=== PATIENT | male | born 1970 | race Two or more races ===

== ENCOUNTER → 2021-02-09 | Outpatient (CLI) | payer MEDICARE, MEDICAID ==
[2021-02-09 10:08] LABS: Basophils # (auto) 0 10 ^3/uL (0-0.2); Basophils % (auto) 0.7 % (0.0-2.0); Eosinophils # (auto) 0 10 ^3/uL (0-0.8); Eosinophils % (auto) 0.7 % (0.0-7.0); Hematocrit 32.9 % (41.0-53.0); Lymphocytes % (auto) 21.8 % (10.0-50.0); Mean Corpuscular Hemoglobin 28.6 pg (28.0-32.0); Mean Corpuscular Hgb Conc. 33.4 g/dL (32.0-36.0); Mean Corpuscular Volume 85.4 fL (80.0-100.0); Monocytes # (auto) 0.7 10 ^3/uL (0-1.3); Monocytes % (auto) 15.1 % (0.0-12.0); Neutrophils # (auto) 2.7 10 ^3/uL (1.6-8.6); Neutrophils % (auto) 61.7 % (37.0-80.0); Red Blood Cells 3.85 10^6/uL (4.5-5.90); Red Cell Distribution Width 16.9 % (11.8-14.3); White Blood Cell 4.4 10^3/uL (4.4-10.8)
[2021-02-09 10:12] LABS: Urine Bacteria NONE SEEN /hpf (None Seen); Urine Blood Negative /uL (Negative); Urine Specific Gravity 1.022 (1.001-1.035); Urine WBC <1 /hpf (0 - 3)
[2021-02-09 10:36] LABS: Potassium 4.4 mmol/L (3.5-5.1)
[2021-02-09 10:55] LABS: Albumin 3.1 g/dL (3.4-5.0); BUN/Creatinine Ratio 32.9; Bilirubin, Total 0.3 mg/dL (0.2-1.0); Calcium 8.8 mg/dL (8.5-10.1); Total Protein 9.4 g/dL (6.4-8.2)
== END | disposition home or self-care (01) ==
LOC: LAB 09:48
PROVIDERS: ATTEND Internal Medicine
DX: I10 Essential (primary) hypertension (principal); J44.9 Chronic obstructive pulmonary disease, unspecified; D64.9 Anemia, unspecified; R56.9 Unspecified convulsions; R73.9 Hyperglycemia, unspecified
CPT/HCPCS: 36415; 80053; 80061; 81001; 83036; 85025

== ENCOUNTER → 2021-02-23 | Outpatient (CLI) | payer MEDICARE, MEDICAID ==
[2021-02-23 09:34] LABS: Basophils # (auto) 0.1 10 ^3/uL (0-0.2); Basophils % (auto) 1.6 % (0.0-2.0); Eosinophils # (auto) 0 10 ^3/uL (0-0.8); Eosinophils % (auto) 1.1 % (0.0-7.0); Hematocrit 32.8 % (41.0-53.0); Lymphocytes # (auto) 1.3 10 ^3/uL (0.4-5.4); Lymphocytes % (auto) 30.1 % (10.0-50.0); Mean Corpuscular Hemoglobin 28.4 pg (28.0-32.0); Mean Corpuscular Hgb Conc. 33.4 g/dL (32.0-36.0); Mean Corpuscular Volume 85.1 fL (80.0-100.0); Monocytes # (auto) 0.5 10 ^3/uL (0-1.3); Monocytes % (auto) 10.9 % (0.0-12.0); Neutrophils # (auto) 2.4 10 ^3/uL (1.6-8.6); Neutrophils % (auto) 56.3 % (37.0-80.0); Nucleated Red Blood Cells % 0.1 %; Platelet Count (auto) 176 10^3/uL (140-450); Red Blood Cells 3.85 10^6/uL (4.5-5.90); Red Cell Distribution Width 16.9 % (11.8-14.3); White Blood Cell 4.2 10^3/uL (4.4-10.8)
[2021-02-23 09:55] LABS: Potassium 4.1 mmol/L (3.5-5.1)
[2021-02-23 10:15] LABS: Albumin 3.4 g/dL (3.4-5.0); BUN/Creatinine Ratio 32.1; Bilirubin, Total 0.2 mg/dL (0.2-1.0); Calcium 9.2 mg/dL (8.5-10.1); Total Protein 9.8 g/dL (6.4-8.2)
== END | disposition home or self-care (01) ==
LOC: LAB 09:06
PROVIDERS: ATTEND Internal Medicine
DX: I10 Essential (primary) hypertension (principal); D64.9 Anemia, unspecified
CPT/HCPCS: 36415; 80053; 85025; 85049

== ENCOUNTER 2021-07-23 20:14 | Inpatient (IN) | payer MEDICARE, MEDICAID ==
[~2021-07-23] VITALS: Ht 180.3 cm; Wt 79.7 kg
[2021-07-23] MEDS ORDERED: ACETAMINOPHEN 500 MG TAB PO ONE (22:30)
[2021-07-23 23:12] LABS: Basophils # (auto) 0 10 ^3/uL (0-0.2); Basophils % (auto) 0.2 % (0.0-2.0); Eosinophils # (auto) 0 10 ^3/uL (0-0.8); Hematocrit 26.8 % (41.0-53.0); Hemoglobin 8.9 g/dL (13.5-17.5); Lymphocytes # (auto) 0.9 10 ^3/uL (0.4-5.4); Mean Corpuscular Hemoglobin 28.8 pg (28.0-32.0); Mean Corpuscular Hgb Conc. 33.1 g/dL (32.0-36.0); Mean Corpuscular Volume 87.1 fL (80.0-100.0); Monocytes # (auto) 0.3 10 ^3/uL (0-1.3); Monocytes % (auto) 6.5 % (0.0-12.0); Neutrophils # (auto) 3.6 10 ^3/uL (1.6-8.6); Neutrophils % (auto) 74.3 % (37.0-80.0); Nucleated Red Blood Cells % 0.1 %; Red Blood Cells 3.08 10^6/uL (4.5-5.90); Red Cell Distribution Width 16.6 % (11.8-14.3); White Blood Cell 4.9 10^3/uL (4.4-10.8)
[2021-07-23 23:28] LABS: INR 0.99 (0.9-1.15)
[2021-07-23 23:29] LABS: Calcium 7.3 mg/dL (8.5-10.1); Magnesium 3.2 mg/dL (1.6-2.6); Potassium 4.1 mmol/L (3.5-5.1)
[2021-07-23 23:35] LABS: BUN/Creatinine Ratio 39.8; Bilirubin, Total 0.3 mg/dL (0.2-1.0); Total Protein 8.5 g/dL (6.4-8.2)
[2021-07-24] MEDS ORDERED: ASPirin 325 MG TAB PO ONE
[2021-07-24] MEDS ORDERED: SODIUM CHLORIDE 0.9% 1,000 ML IV ONE
[2021-07-24] MEDS ORDERED: TEMAZEPAM 15 MG CAP PO PRN (00:45)
[2021-07-24] MEDS ORDERED: ONDANSETRON HCL 4 MG/2 ML VIAL IV PRN (00:45)
[2021-07-24] MEDS ORDERED: ALBUMIN 25% 100 ML IV ONE (00:45)
[2021-07-24] MEDS ORDERED: HYDROcodone-ACET 5/325MG TAB PO PRN (00:45)
[2021-07-24] MEDS ORDERED: SODIUM CHLORIDE 0.9% 1,000 ML IV SCH (00:45)
[2021-07-24] MEDS ORDERED: DOCUSATE SOD 100 MG CAP PO PRN (00:45)
[2021-07-24] MEDS ORDERED: ACETAMINOPHEN 500 MG TAB PO PRN (00:45)
[2021-07-24] MEDS ORDERED: MORPHINE SULFATE INJECTION 2 MG/ML SYRG IV PRN (02:15)
[2021-07-24] MEDS ORDERED: NITROGLYCERIN 0.4 MG SL TAB SL PRN (02:15)
[2021-07-24 04:41] VITALS: BP 98/52
[2021-07-24 07:25] LABS: Magnesium 2.6 mg/dL (1.6-2.6)
[2021-07-24 09:25] LABS: Basophils # (auto) 0 10 ^3/uL (0-0.2); Basophils % (auto) 0.6 % (0.0-2.0); Eosinophils # (auto) 0 10 ^3/uL (0-0.8); Eosinophils % (auto) 0.1 % (0.0-7.0); Hematocrit 32.3 % (41.0-53.0); Hemoglobin 10.4 g/dL (13.5-17.5); Lymphocytes # (auto) 0.8 10 ^3/uL (0.4-5.4); Lymphocytes % (auto) 22.5 % (10.0-50.0); Mean Corpuscular Hemoglobin 28.7 pg (28.0-32.0); Mean Corpuscular Hgb Conc. 32.2 g/dL (32.0-36.0); Mean Corpuscular Volume 89.1 fL (80.0-100.0); Monocytes # (auto) 0.2 10 ^3/uL (0-1.3); Monocytes % (auto) 5.7 % (0.0-12.0); Neutrophils # (auto) 2.7 10 ^3/uL (1.6-8.6); Neutrophils % (auto) 71.1 % (37.0-80.0); Nucleated Red Blood Cells % 0.2 %; Red Blood Cells 3.62 10^6/uL (4.5-5.90); Red Cell Distribution Width 16.8 % (11.8-14.3); White Blood Cell 3.8 10^3/uL (4.4-10.8)
[2021-07-24 09:29] LABS: Albumin 2.5 g/dL (3.4-5.0); Calcium 7.1 mg/dL (8.5-10.1)
[2021-07-24 09:32] LABS: BUN/Creatinine Ratio 39.9; Bilirubin, Total 0.3 mg/dL (0.2-1.0); Total Protein 8.4 g/dL (6.4-8.2)
[2021-07-24] MEDS: ALBUTEROL SULF HFA 90MCG INH 200DOSE IN PRN ×2 (10:36→21:23)
[2021-07-24] MEDS: BUDESONIDE (INHALATION) 180 MCG IH IN SCH ×2 (10:36→21:23)
[2021-07-24] MEDS: cefTRIAXone 1GM/50ML D5W 50 ML IV SCH (11:20)
[2021-07-24] MEDS: ASPirin 81 mg TAB PO SCH (11:21)
[2021-07-24] MEDS: ZINC SULFATE 220mg CAP or TAB PO SCH (11:21)
[2021-07-24] MEDS: DexAMETHasone SOD PHOS 10MG/1ML VIAL INJ IV SCH (11:21)
[2021-07-24] MEDS: ASCORBIC ACID 1,000 MG TAB PO SCH (11:21)
[2021-07-24] MEDS: FAMOTIDINE (10MG/ML) 2ML VL IV SCH ×2 (11:21→22:23)
[2021-07-24] MEDS: MULTIPLE VITAMIN TAB PO SCH (11:21)
[2021-07-24] MEDS: CHOLECALCIFEROL (VITD3) 2,000 UNIT CAP/TAB PO SCH (11:22)
[2021-07-24] MEDS: HEPARIN SODIUM (PORCINE) 5000 UNITS/ML 1ML VIAL SC SCH ×2 (11:22→22:24)
[2021-07-24] MEDS: AZITHROMYCIN 500MG/ 250ML 250 ML IV SCH (12:21)
[2021-07-24] MEDS ORDERED: BUMETANIDE 2.5mg/10ml (0.25 mg/ml) INJ IV ONE (13:30)
[2021-07-24] MEDS: SODIUM CHLORIDE 0.9% 1,000 ML IV SCH ×2 (16:32→23:12)
[2021-07-24 16:38] VITALS: BP 123/73
[2021-07-24 16:43] VITALS: BP 124/77
[2021-07-24 22:00] VITALS: BP 117/78
[2021-07-24] MEDS: SODIUM BICARBONATE 650 MG TAB PO SCH (22:22)
[2021-07-24 23:23] LABS: Urine Bacteria FEW /hpf (None Seen); Urine Blood 2+ /uL (Negative); Urine Mucus FEW (None Seen); Urine Specific Gravity 1.018 (1.001-1.035); Urine WBC 5 /hpf (0 - 3)
[2021-07-25 05:00] VITALS: BP 132/83
[2021-07-25] MEDS: SODIUM CHLORIDE 0.9% 1,000 ML IV SCH ×3 (05:29→22:08)
[2021-07-25] MEDS: BUDESONIDE (INHALATION) 180 MCG IH IN SCH ×2 (06:11→23:00)
[2021-07-25] MEDS: ALBUTEROL SULF HFA 90MCG INH 200DOSE IN PRN ×2 (06:11→23:00)
[2021-07-25 07:35] LABS: Albumin 2.2 g/dL (3.4-5.0); Calcium 6.8 mg/dL (8.5-10.1); Potassium 4.7 mmol/L (3.5-5.1)
[2021-07-25 07:38] LABS: BUN/Creatinine Ratio 46.8; Bilirubin, Total 0.4 mg/dL (0.2-1.0); Total Protein 7.9 g/dL (6.4-8.2)
[2021-07-25 08:00] VITALS: BP 128/70
[2021-07-25 09:00] VITALS: BP 128/70
[2021-07-25] MEDS: cefTRIAXone 1GM/50ML D5W 50 ML IV SCH (11:11)
[2021-07-25] MEDS: DexAMETHasone SOD PHOS 10MG/1ML VIAL INJ IV SCH (11:12)
[2021-07-25] MEDS: MULTIPLE VITAMIN TAB PO SCH (11:12)
[2021-07-25] MEDS: ZINC SULFATE 220mg CAP or TAB PO SCH (11:12)
[2021-07-25] MEDS: ASPirin 81 mg TAB PO SCH (11:12)
[2021-07-25] MEDS: SODIUM BICARBONATE 650 MG TAB PO SCH ×2 (11:12→22:08)
[2021-07-25] MEDS: ASCORBIC ACID 1,000 MG TAB PO SCH (11:12)
[2021-07-25] MEDS: FAMOTIDINE (10MG/ML) 2ML VL IV SCH ×2 (11:12→22:08)
[2021-07-25] MEDS: CHOLECALCIFEROL (VITD3) 2,000 UNIT CAP/TAB PO SCH (11:13)
[2021-07-25] MEDS: HEPARIN SODIUM (PORCINE) 5000 UNITS/ML 1ML VIAL SC SCH (11:14)
[2021-07-25 13:00] VITALS: BP 126/79
[2021-07-25] MEDS: AZITHROMYCIN 500MG/ 250ML 250 ML IV SCH (14:22)
[2021-07-25 15:54] LABS: Basophils # (auto) 0.1 10 ^3/uL (0-0.2); Basophils % (auto) 1.5 % (0.0-2.0); Eosinophils # (auto) 0 10 ^3/uL (0-0.8); Hematocrit 32.8 % (41.0-53.0); Hemoglobin 10.7 g/dL (13.5-17.5); Lymphocytes # (auto) 0.4 10 ^3/uL (0.4-5.4); Mean Corpuscular Hgb Conc. 32.5 g/dL (32.0-36.0); Mean Corpuscular Volume 86.3 fL (80.0-100.0); Monocytes # (auto) 0.3 10 ^3/uL (0-1.3); Monocytes % (auto) 8.2 % (0.0-12.0); Neutrophils # (auto) 2.9 10 ^3/uL (1.6-8.6); Neutrophils % (auto) 80.3 % (37.0-80.0); Nucleated Red Blood Cells % 0.3 %; Red Cell Distribution Width 16.4 % (11.8-14.3); White Blood Cell 3.6 10^3/uL (4.4-10.8)
[2021-07-25 16:04] LABS: Lipase 841 U/L (73-393)
[2021-07-25 16:13] LABS: Amylase 220 U/L (25-115); Creatine Kinase IFCC 870 U/L (39-308)
[2021-07-25 17:00] VITALS: BP 126/76
[2021-07-25 22:00] VITALS: BP 124/83
[2021-07-25 22:56] LABS: Amphetamine Screen, Urine NEGATIVE (NEGATIVE); Barbiturate Scree,Urine NEGATIVE (NEGATIVE); Benzodiazephine Screen, Urine NEGATIVE (NEGATIVE); Cannabinoid Screen, Urine NEGATIVE (NEGATIVE); Cocaine Screen, Urine NEGATIVE (NEGATIVE); Opiate Scree,Urine NEGATIVE (NEGATIVE); Phencyclidine Screen, Urine NEGATIVE (NEGATIVE)
[2021-07-26 05:00] VITALS: BP 132/89
[2021-07-26] MEDS: SODIUM CHLORIDE 0.9% 1,000 ML IV SCH ×2 (05:30→16:30)
[2021-07-26] MEDS: BUDESONIDE (INHALATION) 180 MCG IH IN SCH ×2 (05:52→22:22)
[2021-07-26] MEDS: ALBUTEROL SULF HFA 90MCG INH 200DOSE IN PRN ×2 (05:52→23:15)
[2021-07-26 07:18] LABS: Basophils # (auto) 0 10 ^3/uL (0-0.2); Basophils % (auto) 0.5 % (0.0-2.0); Eosinophils # (auto) 0 10 ^3/uL (0-0.8); Eosinophils % (auto) 0.1 % (0.0-7.0); Hematocrit 32.2 % (41.0-53.0); Hemoglobin 10.6 g/dL (13.5-17.5); Lymphocytes # (auto) 0.9 10 ^3/uL (0.4-5.4); Lymphocytes % (auto) 28.9 % (10.0-50.0); Mean Corpuscular Hemoglobin 28.9 pg (28.0-32.0); Mean Corpuscular Hgb Conc. 32.9 g/dL (32.0-36.0); Mean Corpuscular Volume 87.8 fL (80.0-100.0); Monocytes # (auto) 0.4 10 ^3/uL (0-1.3); Monocytes % (auto) 11.9 % (0.0-12.0); Neutrophils # (auto) 1.7 10 ^3/uL (1.6-8.6); Neutrophils % (auto) 58.6 % (37.0-80.0); Nucleated Red Blood Cells % 0.2 %; Red Blood Cells 3.66 10^6/uL (4.5-5.90); Red Cell Distribution Width 16.4 % (11.8-14.3)
[2021-07-26 07:41] LABS: Albumin 1.9 g/dL (3.4-5.0); Calcium 6.7 mg/dL (8.5-10.1); Potassium 4.2 mmol/L (3.5-5.1)
[2021-07-26 07:44] LABS: BUN/Creatinine Ratio 52.1; Bilirubin, Total 0.3 mg/dL (0.2-1.0); Total Protein 7.3 g/dL (6.4-8.2)
[2021-07-26 09:00] VITALS: BP_SYST 119; BP_SYST 133; BP_DIAS 68; BP_DIAS 74
[2021-07-26] MEDS: cefTRIAXone 1GM/50ML D5W 50 ML IV SCH (09:00)
[2021-07-26] MEDS: ASCORBIC ACID 1,000 MG TAB PO SCH (10:00)
[2021-07-26] MEDS: MULTIPLE VITAMIN TAB PO SCH (10:00)
[2021-07-26] MEDS: DexAMETHasone SOD PHOS 10MG/1ML VIAL INJ IV SCH (10:00)
[2021-07-26] MEDS: FAMOTIDINE (10MG/ML) 2ML VL IV SCH ×2 (10:00→22:21)
[2021-07-26] MEDS: ZINC SULFATE 220mg CAP or TAB PO SCH (10:00)
[2021-07-26] MEDS: AZITHROMYCIN 500MG/ 250ML 250 ML IV SCH (10:00)
[2021-07-26] MEDS: CHOLECALCIFEROL (VITD3) 2,000 UNIT CAP/TAB PO SCH (10:00)
[2021-07-26] MEDS: SODIUM BICARBONATE 650 MG TAB PO SCH ×2 (10:00→22:21)
[2021-07-26 12:33] VITALS: BP 134/88
[2021-07-26] MEDS ORDERED: ENOXAPARIN SOD 40 MG/0.4 ML SYRINGE SC ONE (14:15)
[2021-07-26 16:32] VITALS: BP 133/77
[2021-07-26 22:00] VITALS: BP 127/93
[2021-07-27] MEDS: SODIUM CHLORIDE 0.9% 1,000 ML IV SCH ×2 (03:52→17:02)
[2021-07-27 05:00] VITALS: BP 146/96
[2021-07-27 08:47] VITALS: BP 136/85
[2021-07-27] MEDS: ALBUTEROL SULF HFA 90MCG INH 200DOSE IN PRN ×2 (08:57→20:01)
[2021-07-27] MEDS: BUDESONIDE (INHALATION) 180 MCG IH IN SCH ×2 (08:57→20:01)
[2021-07-27] MEDS: cefTRIAXone 1GM/50ML D5W 50 ML IV SCH (09:00)
[2021-07-27] MEDS: FAMOTIDINE (10MG/ML) 2ML VL IV SCH ×2 (10:00→22:05)
[2021-07-27] MEDS: AZITHROMYCIN 500MG/ 250ML 250 ML IV SCH (10:00)
[2021-07-27] MEDS: DexAMETHasone SOD PHOS 10MG/1ML VIAL INJ IV SCH (10:00)
[2021-07-27] MEDS: MULTIPLE VITAMIN TAB PO SCH (10:00)
[2021-07-27] MEDS: ENOXAPARIN SOD 40 MG/0.4 ML SYRINGE SC SCH (10:00)
[2021-07-27] MEDS: SODIUM BICARBONATE 650 MG TAB PO SCH ×2 (10:00→22:06)
[2021-07-27] MEDS: CHOLECALCIFEROL (VITD3) 2,000 UNIT CAP/TAB PO SCH (10:00)
[2021-07-27] MEDS: ASCORBIC ACID 1,000 MG TAB PO SCH (10:00)
[2021-07-27] MEDS: ZINC SULFATE 220mg CAP or TAB PO SCH (10:00)
[2021-07-27 12:42] VITALS: BP 133/89
[2021-07-27 17:03] VITALS: BP 122/83
[2021-07-27 21:30] VITALS: BP 135/89
[2021-07-28 05:00] VITALS: BP 149/94
[2021-07-28 07:04] LABS: Basophils # (auto) 0.1 10 ^3/uL (0-0.2); Basophils % (auto) 1.6 % (0.0-2.0); Eosinophils # (auto) 0.1 10 ^3/uL (0-0.8); Eosinophils % (auto) 2.2 % (0.0-7.0); Hematocrit 37.3 % (41.0-53.0); Hemoglobin 11.9 g/dL (13.5-17.5); Lymphocytes # (auto) 0.8 10 ^3/uL (0.4-5.4); Lymphocytes % (auto) 23.6 % (10.0-50.0); Mean Corpuscular Hemoglobin 27.7 pg (28.0-32.0); Mean Corpuscular Hgb Conc. 31.8 g/dL (32.0-36.0); Mean Corpuscular Volume 87.2 fL (80.0-100.0); Monocytes # (auto) 0.4 10 ^3/uL (0-1.3); Monocytes % (auto) 12.8 % (0.0-12.0); Neutrophils % (auto) 59.8 % (37.0-80.0); Nucleated Red Blood Cells % 0.6 %; Red Blood Cells 4.28 10^6/uL (4.5-5.90); Red Cell Distribution Width 16.1 % (11.8-14.3); White Blood Cell 3.3 10^3/uL (4.4-10.8)
[2021-07-28 07:44] LABS: Albumin 2.1 g/dL (3.4-5.0); BUN/Creatinine Ratio 42.2; Bilirubin, Total 0.4 mg/dL (0.2-1.0); CRP High Sensitivity 3.06 mg/dL (< 0.3); Calcium 7.3 mg/dL (8.5-10.1); Magnesium 2.5 mg/dL (1.6-2.6); Total Protein 7.4 g/dL (6.4-8.2)
[2021-07-28 09:00] VITALS: BP 139/85
[2021-07-28] MEDS: cefTRIAXone 1GM/50ML D5W 50 ML IV SCH (09:14)
[2021-07-28] MEDS: FAMOTIDINE (10MG/ML) 2ML VL IV SCH (10:52)
[2021-07-28] MEDS: DexAMETHasone SOD PHOS 10MG/1ML VIAL INJ IV SCH (10:52)
[2021-07-28] MEDS: ENOXAPARIN SOD 40 MG/0.4 ML SYRINGE SC SCH (10:53)
[2021-07-28] MEDS: AZITHROMYCIN 500MG/ 250ML 250 ML IV SCH (11:51)
[2021-07-28] MEDS: SODIUM BICARBONATE 650 MG TAB PO SCH (11:52)
[2021-07-28] MEDS: ZINC SULFATE 220mg CAP or TAB PO SCH (11:52)
[2021-07-28] MEDS: MULTIPLE VITAMIN TAB PO SCH (11:53)
[2021-07-28] MEDS: ASCORBIC ACID 1,000 MG TAB PO SCH (11:53)
[2021-07-28] MEDS: CHOLECALCIFEROL (VITD3) 2,000 UNIT CAP/TAB PO SCH (11:53)
[2021-07-28 12:30] VITALS: BP 139/92
[2021-07-28] MEDS: BUDESONIDE (INHALATION) 180 MCG IH IN SCH (15:34)
[2021-07-28] MEDS: ALBUTEROL SULF HFA 90MCG INH 200DOSE IN PRN (15:34)
[2021-07-28 17:00] VITALS: BP 144/88
[2021-07-28 17:53] VITALS: BP 144/88
== END 2021-07-28 18:55 | disposition home or self-care (01) | DRG 177 ==
LOC: ER 20:14 → EDBD 20:14 → OVERFLOW 07-24 02:10 → EAST 07-24 08:11
PROVIDERS: ADMIT Nurse Practitioner Family; ATTEND Internal Medicine
DX: U07.1 COVID-19 (principal); J12.82 Pneumonia due to coronavirus disease 2019; G93.41 Metabolic encephalopathy; K85.90 Acute pancreatitis without necrosis or infection, unspecified; E43 Unspecified severe protein-calorie malnutrition; N17.9 Acute kidney failure, unspecified; E87.2 Acidosis; I13.0 Hypertensive heart and chronic kidney disease with heart failure and stage 1 through stage 4 chronic kidney disease, or unspecified chronic kidney disease; J44.0 Chronic obstructive pulmonary disease with (acute) lower respiratory infection; D68.59 Other primary thrombophilia; D69.6 Thrombocytopenia, unspecified; D63.8 Anemia in other chronic diseases classified elsewhere; G40.909 Epilepsy, unspecified, not intractable, without status epilepticus; E86.9 Volume depletion, unspecified; N18.9 Chronic kidney disease, unspecified; T38.0X5A Adverse effect of glucocorticoids and synthetic analogues, initial encounter; R13.10 Dysphagia, unspecified; I50.9 Heart failure, unspecified; E88.09 Other disorders of plasma-protein metabolism, not elsewhere classified; Z86.73 Personal history of transient ischemic attack (TIA), and cerebral infarction without residual deficits; Z74.01 Bed confinement status; Z79.899 Other long term (current) drug therapy; Y92.89 Other specified places as the place of occurrence of the external cause; R74.8 Abnormal levels of other serum enzymes; Z93.1 Gastrostomy status; Z68.24 Body mass index [BMI] 24.0-24.9, adult
CPT/HCPCS: 36415; 71045; 74176; 80053; 80307; 81001; 82150; 82542; 82550; 82728; 83605; 83615; 83690; 83735; 83880; 84484; 85025; 85379; 85610; 86141; 87040; 87426; 93005; 93306; 94640; 96365; G0378; J0696; J1100; J3490; J7060; P9047

== ENCOUNTER 2021-10-22 06:57 | Emergency (ER) | payer MEDICARE, MEDICAID ==
[~2021-10-22] VITALS: Ht 182.9 cm; Wt 72.6 kg
[2021-10-22 08:19] LABS: Urine WBC None Seen /hpf (0 - 3)
[2021-10-22 10:45] VITALS: BP 117/52
[2021-10-22 10:45] LABS: Urine Bacteria NONE SEEN /hpf (None Seen); Urine Blood Negative /uL (Negative); Urine Specific Gravity 1.022 (1.001-1.035)
== END 2021-10-22 10:50 | disposition home or self-care (01) ==
LOC: ER 06:57
DX: I10 Essential (primary) hypertension (principal); Z86.73 Personal history of transient ischemic attack (TIA), and cerebral infarction without residual deficits; Z45.82 Encounter for adjustment or removal of myringotomy device (stent) (tube)
CPT/HCPCS: 74176; 81001

== ENCOUNTER → 2021-12-30 | Outpatient (CLI) | payer MEDICARE, MEDICAID | END | disposition home or self-care (01) | LOC: LAB 07:33 | PROVIDERS: ATTEND Internal Medicine | DX: R79.89 Other specified abnormal findings of blood chemistry (principal); D72.819 Decreased white blood cell count, unspecified | CPT/HCPCS: 36415; 82550; 85652 ==

== ENCOUNTER → 2022-02-17 | Outpatient (CLI) | payer MEDICARE, MEDICAID ==
[2022-02-17 13:27] LABS: Albumin 2.9 g/dL (3.4-5.0); Calcium 8.7 mg/dL (8.5-10.1); Potassium 3.8 mmol/L (3.5-5.1)
[2022-02-17 13:42] LABS: BUN/Creatinine Ratio 19.3; Bilirubin, Total 0.3 mg/dL (0.2-1.0); Total Protein 10.3 g/dL (6.4-8.2)
== END | disposition home or self-care (01) ==
LOC: LAB 11:58
PROVIDERS: ATTEND Internal Medicine
DX: M05.9 Rheumatoid arthritis with rheumatoid factor, unspecified (principal); R73.03 Prediabetes; E78.5 Hyperlipidemia, unspecified
CPT/HCPCS: 36415; 80053; 82085; 82550; 85652

== ENCOUNTER → 2022-03-22 | Outpatient (CLI) | payer MEDICARE, MEDICAID ==
[2022-03-22 13:09] LABS: BUN/Creatinine Ratio 10.5; Calcium 8.2 mg/dL (8.5-10.1)
[2022-03-22 13:34] LABS: Potassium 2.9 mmol/L (3.5-5.1)
== END | disposition home or self-care (01) ==
LOC: LAB 12:17
PROVIDERS: ATTEND Internal Medicine
DX: R06.02 Shortness of breath (principal); M06.9 Rheumatoid arthritis, unspecified
CPT/HCPCS: 36415; 80048

== ENCOUNTER → 2022-03-25 | Outpatient (CLI) | payer MEDICARE, MEDICAID ==
[2022-03-25 10:51] LABS: BUN/Creatinine Ratio 8.6; Calcium 8.3 mg/dL (8.5-10.1); Potassium 3.1 mmol/L (3.5-5.1)
== END | disposition home or self-care (01) ==
LOC: LAB 10:04
PROVIDERS: ATTEND Internal Medicine
DX: E87.6 Hypokalemia (principal)
CPT/HCPCS: 36415; 80048

== ENCOUNTER → 2022-04-01 | Outpatient (CLI) | payer MEDICARE, MEDICAID ==
[2022-04-01 08:51] LABS: Calcium 8.1 mg/dL (8.5-10.1)
== END | disposition home or self-care (01) ==
LOC: LAB 07:51
PROVIDERS: ATTEND Internal Medicine
DX: E87.6 Hypokalemia (principal)
CPT/HCPCS: 36415; 80048

== ENCOUNTER → 2022-09-09 | Outpatient (CLI) | payer MEDICARE, MEDICAID ==
[2022-09-09 08:24] LABS: BUN/Creatinine Ratio 18.9; Calcium 8.5 mg/dL (8.5-10.1)
== END | disposition home or self-care (01) ==
LOC: LAB 07:22
PROVIDERS: ATTEND Internal Medicine
DX: R73.03 Prediabetes (principal); M05.9 Rheumatoid arthritis with rheumatoid factor, unspecified; E87.6 Hypokalemia; E78.5 Hyperlipidemia, unspecified
CPT/HCPCS: 36415; 80048; 80061; 82550; 85652

== ENCOUNTER → 2023-01-27 | Outpatient (CLI) | payer MEDICARE, MEDICAID | END | disposition home or self-care (01) | LOC: LAB 07:31 | PROVIDERS: ATTEND Internal Medicine | DX: Z12.11 Encounter for screening for malignant neoplasm of colon (principal); M06.9 Rheumatoid arthritis, unspecified; R73.03 Prediabetes; M32.9 Systemic lupus erythematosus, unspecified | CPT/HCPCS: 36415; 82550; 83036; 84153; 85652 ==

== ENCOUNTER → 2023-04-27 | Outpatient (CLI) | payer MEDICARE, MEDICAID ==
[2023-04-27 08:11] LABS: Erythrocyte Sedimentation Rate 82 mm/hr (0-20)
== END | disposition home or self-care (01) ==
LOC: LAB 07:12
PROVIDERS: ATTEND Internal Medicine
DX: M05.9 Rheumatoid arthritis with rheumatoid factor, unspecified (principal); R74.8 Abnormal levels of other serum enzymes
CPT/HCPCS: 36415; 82550; 85652

== ENCOUNTER → 2023-07-05 | Outpatient (CLI) | payer MEDICARE, MEDICAID ==
[2023-07-05 09:02] LABS: Basophils # (auto) 0.1 10 ^3/uL (0-0.2); Eosinophils # (auto) 0 10 ^3/uL (0-0.8); Eosinophils % (auto) 0.5 % (0.0-7.0); Hemoglobin 14.1 g/dL (13.5-17.5); Lymphocytes # (auto) 2.5 10 ^3/uL (0.4-5.4); Monocytes # (auto) 0.4 10 ^3/uL (0-1.3); White Blood Cell 5.7 10^3/uL (4.4-10.8)
[2023-07-05 09:05] LABS: Basophils % (auto) 1.3 % (0.0-2.0); Hematocrit 43.6 % (41.0-53.0); Lymphocytes % (auto) 43.6 % (10.0-50.0); Mean Corpuscular Hemoglobin 27.2 pg (28.0-32.0); Mean Corpuscular Hgb Conc. 32.4 g/dL (32.0-36.0); Mean Corpuscular Volume 83.9 fL (80.0-100.0); Neutrophils # (auto) 2.7 10 ^3/uL (1.6-8.6); Neutrophils % (auto) 47.6 % (37.0-80.0); Nucleated Red Blood Cells % 0.2 %; Red Cell Distribution Width 16.9 % (11.8-14.3)
[2023-07-05 09:13] LABS: Urine Bacteria NONE SEEN /hpf (None Seen); Urine Blood Negative /uL (Negative); Urine Clarity Clear (Clear); Urine Color Yellow (Yellow); Urine Protein, UAD TRACE (Negative); Urine Specific Gravity 1.024 (1.001-1.035); Urine Urobilinogen Normal (Negative); Urine WBC 1 /hpf (0 - 3); Urine pH 5.5 (5.0-8.0)
[2023-07-05 09:25] LABS: Protein, Urine 38.4 mg/dL (0.0-11.9)
[2023-07-05 09:26] LABS: Creatinine, Urine 135.05 mg/dL (30.0-125.0); Urine Protein/Creatinine Ratio 0.28
[2023-07-05 09:29] LABS: Alanine Aminotransferase 21 U/L (7-40); Albumin 4.2 g/dL (3.2-4.8); Alkaline Phosphatase 119 U/L (46-116); Anion Gap 7 (5-15); Aspartate Aminotransferase 20 U/L (13-40); BUN/Creatinine Ratio 14.9 (10.0-20.0); Bilirubin, Total 0.3 mg/dL (0.2-1.0); Blood Urea Nitrogen 15 mg/dL (9-23); CRP High Sensitivity 0.05 mg/dL (<1.0); Calcium 9.2 mg/dL (8.5-10.1); Carbon Dioxide 28 mmol/L (20-30); Chloride 106 mmol/L (98-107); Creatine Kinase IFCC 92 U/L (46-171); Glucose 84 mg/dL (74-106); Potassium 4.2 mmol/L (3.5-5.1); Sodium 141 mmol/L (136-145); Total Protein 8.1 g/dL (5.7-8.2)
[2023-07-05 09:46] LABS: Erythrocyte Sedimentation Rate 28 mm/hr (0-20)
[2023-07-06 07:07] LABS: Complement C3 132 mg/dL (82-167)
== END | disposition home or self-care (01) ==
LOC: LAB 08:20
PROVIDERS: ATTEND Internal Medicine Rheumatology
DX: Z12.11 Encounter for screening for malignant neoplasm of colon (principal); Z00.00 Encounter for general adult medical examination without abnormal findings; M32.10 Systemic lupus erythematosus, organ or system involvement unspecified; R73.03 Prediabetes; M06.9 Rheumatoid arthritis, unspecified; D72.819 Decreased white blood cell count, unspecified; Z79.899 Other long term (current) drug therapy
CPT/HCPCS: 36415; 80053; 81001; 82550; 82570; 84153; 84156; 85025; 85652; 86141; 86160

== ENCOUNTER → 2023-10-03 | Outpatient (CLI) | payer MEDICARE, MEDICAID ==
[2023-10-03 08:00] LABS: Creatinine, Urine 101.28 mg/dL (30.0-125.0)
[2023-10-03 08:51] LABS: Alanine Aminotransferase 12 U/L (7-40); Albumin 4.1 g/dL (3.2-4.8); Alkaline Phosphatase 129 U/L (46-116); Anion Gap 6 (5-15); Aspartate Aminotransferase 28 U/L (13-40); BUN/Creatinine Ratio 11.8 (10.0-20.0); Blood Urea Nitrogen 13 mg/dL (9-23); Calcium 9.4 mg/dL (8.5-10.1); Carbon Dioxide 26 mmol/L (20-30); Chloride 109 mmol/L (98-107); Cholesterol 163 mg/dL (< 200); Glucose 67 mg/dL (74-106); HDL Cholesterol 52 mg/dL (40-59); LDL Cholesterol 100 mg/dL (< 100); Potassium 3.6 mmol/L (3.5-5.1); Sodium 141 mmol/L (136-145); Triglycerides 53 mg/dL (< 150)
[2023-10-03 08:52] LABS: Bilirubin, Total 0.4 mg/dL (0.2-1.0); Total Protein 7.5 g/dL (5.7-8.2)
== END | disposition home or self-care (01) ==
LOC: LAB 07:07
PROVIDERS: ATTEND Internal Medicine
DX: R73.03 Prediabetes (principal); M06.9 Rheumatoid arthritis, unspecified; E78.5 Hyperlipidemia, unspecified
CPT/HCPCS: 36415; 80053; 80061; 82043; 82570; 83036

== ENCOUNTER → 2024-06-27 | Outpatient (CLI) | payer MEDICARE, MEDICAID ==
[2024-06-27 08:01] LABS: Creatinine, Urine 105.9 mg/dL (30.0-125.0)
== END | disposition home or self-care (01) ==
LOC: LAB 06:51
PROVIDERS: ATTEND Internal Medicine
DX: E78.5 Hyperlipidemia, unspecified (principal); R73.03 Prediabetes
CPT/HCPCS: 36415; 82043; 82550; 82570; 83036

== ENCOUNTER → 2024-08-19 | Outpatient (CLI) | payer MEDICARE, MEDICAID ==
[2024-08-19 09:10] LABS: Potassium 3.7 mmol/L (3.5-5.1); Sodium 144 mmol/L (136-145)
[2024-08-19 09:11] LABS: Anion Gap 8 (5-15); Calcium 9.5 mg/dL (8.7-10.4); Carbon Dioxide 28 mmol/L (20-31)
[2024-08-19 09:16] LABS: BUN/Creatinine Ratio 12.3 (10.0-20.0); Blood Urea Nitrogen 13 mg/dL (9-23); Glucose 83 mg/dL (74-106)
[2024-08-19 09:32] LABS: Chloride 108 mmol/L (98-107)
== END | disposition home or self-care (01) ==
LOC: LAB 07:40
PROVIDERS: ATTEND Internal Medicine
DX: I10 Essential (primary) hypertension (principal); R73.03 Prediabetes
CPT/HCPCS: 36415; 80048

== ENCOUNTER → 2024-09-23 | Outpatient (CLI) | payer MEDICARE, MEDICAID ==
[2024-09-23 08:44] LABS: Basophils # (auto) 0 10 ^3/uL (0-0.2); Basophils % (auto) 0.6 % (0.0-2.0); Eosinophils # (auto) 0.1 10 ^3/uL (0-0.8); Eosinophils % (auto) 3.2 % (0.0-7.0); Hematocrit 39.8 % (41.0-53.0); Lymphocytes # (auto) 0.8 10 ^3/uL (0.4-5.4); Mean Corpuscular Hemoglobin 28.9 pg (28.0-32.0); Mean Corpuscular Hgb Conc. 32.6 g/dL (32.0-36.0); Mean Corpuscular Volume 88.5 fL (80.0-100.0); Monocytes # (auto) 0.5 10 ^3/uL (0-1.3); Monocytes % (auto) 15.9 % (0.0-12.0); Neutrophils # (auto) 1.8 10 ^3/uL (1.6-8.6); Neutrophils % (auto) 55.3 % (37.0-80.0); Nucleated Red Blood Cells % 0.2 %; Platelet Count (auto) 185 10^3/uL (140-450); Red Cell Distribution Width 15.1 % (11.8-14.3); White Blood Cell 3.3 10^3/uL (4.4-10.8)
[2024-09-23 09:39] LABS: Alanine Aminotransferase 11 U/L (7-40); Albumin 4.2 g/dL (3.2-4.8); Anion Gap 8 (5-15); Aspartate Aminotransferase 28 U/L (13-40); BUN/Creatinine Ratio 8.4 (10.0-20.0); Blood Urea Nitrogen 9 mg/dL (9-23); Calcium 9.2 mg/dL (8.7-10.4); Carbon Dioxide 24 mmol/L (20-31); Glucose 79 mg/dL (74-106); Potassium 3.5 mmol/L (3.5-5.1); Sodium 142 mmol/L (136-145)
[2024-09-23 09:40] LABS: Total Protein 7.5 g/dL (5.7-8.2)
[2024-09-23 09:50] LABS: Alkaline Phosphatase 130 U/L (46-116); Bilirubin, Total 0.3 mg/dL (0.2-1.0); Chloride 110 mmol/L (98-107)
== END | disposition home or self-care (01) ==
LOC: LAB 06:39
PROVIDERS: ATTEND Internal Medicine
DX: I10 Essential (primary) hypertension (principal); R73.03 Prediabetes; E78.5 Hyperlipidemia, unspecified
CPT/HCPCS: 36415; 80053; 83036; 85025

== ENCOUNTER → 2024-10-07 | Outpatient (CLI) | payer MEDICARE, MEDICAID | END | disposition home or self-care (01) | LOC: LAB 14:45 | PROVIDERS: ATTEND Internal Medicine | DX: R06.02 Shortness of breath (principal); R73.03 Prediabetes; R60.9 Edema, unspecified | CPT/HCPCS: 36415; 82550; 83880; 84484 ==